=== PATIENT | female | born 1990 | race Caucasian/White ===

== ENCOUNTER 2025-02-10 18:22 | Emergency (ER) | payer OTHER, BC, SELFPAY ==
--- NOTE | ~2025-02-10 | XR_ITS ---
HISTORY: L hand laceration COMPARISON: None TECHNIQUE: 3 views of the left hand were performed. FINDINGS: No acute fracture is identified. The joint spaces are preserved. The carpal arcs are intact. Bone mineralization is age-appropriate. Moderate soft tissue swelling projecting over the DIP of the left second digit No radiopaque foreign body is identified. IMPRESSION: No acute fracture or dislocation within the left hand, as detailed above. Reviewed, dictated and finalized at location A.
--- OUTSIDE RECORDS SUMMARY | 2025-02-10 18:24 | XMS_ITS | Referral Summary ---
Author Organization [facility] Address [address] [place] [address] Care Team Providers Care Shell Mold Bonder Name Role Phone Pcp, No Primary Care Provider Unavailabl e Allergies No known active allergies Medications Medication Sig Dispensed Refills Start Date End Date Status HYDROCODONE-ACETAMINOPH EN ORAL Take 10-325 mg by mouth as needed. Active Active Problems Problem Noted Date Diagnosed Date Acute lumbar radiculopathy 12/05/2016 Social History Tobacco Use Types Packs/Day Years Used Date Smoking Tobacco: Every Day Alcohol Use Standard Drinks/Week Comments No 0 (1 standard drink = 0.6 oz pur e alcohol) Sex and Gender Information Value Date Recorded Sex Assigned at Not on file Gender Identity Not on file Sexual Orientation Not on file Last Filed Vital Signs Vital Sign Reading Time Taken Comments Blood Pressure 146/88 04/24/2017 12:30 PM EDT Pulse 74 04/24/2017 1:00 PM EDT Temperature 36.4 C (97.5 F) 04/24/2017 12:30 PM EDT Respiratory Rate 13 04/24/2017 1:00 PM EDT Oxygen Saturation 100% 04/24/2017 1:00 PM EDT Inhaled Oxygen Concentration - - Weight 90.7 kg (200 lb) 04/24/2017 12:57 PM EDT Height 160 cm (5' 3 ) 04/24/2017 12:57 PM EDT Body Mass Index 35.43 04/24/2017 12:57 PM EDT Plan of Treatment Not on file Care Teams Shell Mold Bonder Relationship Specialty Start Date End Date Pcp, No PCP - General 12/05/16
--- OUTSIDE RECORDS SUMMARY | 2025-02-10 18:24 | XMS_ITS | Encounter Summary ---
Author Organization [facility] Address [address] [place] [address] Care Team Providers Care Public Health Worker Name Role Phone Jennifer Emerson DO Primary Care Provider [phone] Encounter Details Date Type Department Care Team ([facility] st Contact Info) Description 11/15/2019 Telephone [facility] [address] [facility] [place] [address] Mary Yousif LPN Social History Tobacco Use Types Packs/Day Years Used Date Smoking Tobacco: Former Cigarettes 0.5 15 Smokeless Tobacco: Never Alcohol Use Standard Drinks/Week Comments Yes 0 (1 standard drink = 0.6 oz pur e alcohol) occ Comments No Sex and Gender Information Value Date Recorded Sex Assigned at Female 05/11/2019 6:45 PM EDT Legal Sex Female 1:03 PM EST Gender Identity Female 05/11/2019 6:45 PM EDT Sexual Orientation Straight 05/11/2019 6: 45 PM EDT documented as of this encounter Miscellaneous Notes * Telephone Encounter - Staci Braxton MA - 11/15/2019 6:34 PM EST Patient returned call. Below information was given. Patient verbalized understanding and call ended. * Telephone Encounter - Mary Yousif LPN - 11/15/2019 5:59 PM EST No answer VM left to RTC.Mary Yousif LPN 11/15/2019 5:59 PM * Telephone Encounter - Mary Yousif LPN - 11/15/2019 5:58 PM EST ----- Message from Carie Marin NP sent at 11/15/2019 5:00 PM EST ----- Gonorrhea, chlamydia, and yeast tests were negative. Positive for BV and trichomonas. Patient has already been treated for this with Flagyl. Please notify patient trichomonas is an STD. Pt should abstain from all sexual activity until she and her partner have completed all treatment. Pt should f/u w/ their PCP if further concerns. Please inform the patient. documented in this encounter Plan of Treatment Not on file documented as of this encounter Visit Diagnoses Not on filedocumented in this encounter Additional Health Concerns Infection Onset Date Last Indicated Resolved Time Coronavirus Disease (COVID-1 9) - Rule out 05/03/2021 05/03/2021 05/03/2021 12:03 PM EDT documented as of this encounter Care Teams Public Health Worker Relationship Specialty Start Date End Date Jennifer Emerson DO [address] [place] [address] PCP - General 05/11/19 documented as of this encounter
--- OUTSIDE RECORDS SUMMARY | 2025-02-10 18:24 | XMS_ITS | Encounter Summary ---
Author Organization [facility] Address [address] [place] [address] Care Team Providers Care Family Health Nurse Practitioner Name Role Phone Pcp, No Primary Care Provider Unavailabl e Encounter Details Date Type Department Care Team (Late st Contact Info) Description 11/19/2014 Conversion Encounter [facility] Conversion Department [address] [place] [address] Levar Gomes MD [address] [place] [address] Social History Tobacco Use Types Packs/Day Years Used Date Smoking Tobacco: Never Assessed Sex and Gender Information Value Date Recorded Sex Assigned at Not on file Gender Identity Not on file Sexual Orientation Not on file documented as of this encounter Progress Notes * Provider, Historical - 11/19/2014 12:00 AM EST [id number] Report: Radiology ([facility]) Radiology PATIENT NAME: [facility] NUMBER: [id number] DATE: 11/20/2014 CASE#: [id number] SIGNATURE:NATA PATEL RADIOLOGY REPORT:SPINE LUMBAR 2 OR 3 VIEWS post op spinal fusion 11/20/2014 10:54 AM Comparison: September 20, 2014. Pedicle screws and rods and intravertebral spacer have been placed at L4-L5. The disc space remains normal.. Overall alignment is normal. [facility] - [facility] Bl[facility] Changer Date - IMPRESSION:Intact L4-L5 discectomy and fusion. DICTATED BY : Dr. NATA PATEL Nov 20 2014 11:16AM ELECTRONICALLY SIGNED BY: Dr. NATA PATEL Nov 20 2014 11:13AM TRANSCRIBED BY: PSCB Nov 20 2014 11:12AM RADRES [id number] ^^^ documented in this encounter OR Notes * Op Note - Levar Gomes MD - 11/19/2014 12:00 AM EST PATIENT: LILI CUI [facility] NO: [id number] DATE OF : 1990 ACCOUNT NO: [id number] DATE OF PROCEDURE: 11/19/2014 DICTATING PHYSICIAN: SRINIVAS GAYTAN M.D., Resident STAFF PHYSICIAN: Levar Gomes M.D. HOSPITAL - OPERATIVE NOTE PROCEDURE: Open right lumbar 4-lumbar 5 transforaminal interbody fusion (L4-5 transforaminal lumbar interbody fusion (TLIF). PREOPERATIVE DIAGNOSIS: Lumbar radiculopathy, right-sided, related to disk herniation, facet arthropathy, lateral recess stenosis. POSTOPERATIVE DIAGNOSIS: Lumbar radiculopathy, right-sided, related to disk herniation, facet arthropathy, lateral recess stenosis. ANESTHESIA: General. INDICATION FOR PROCEDURE: Briefly, the patient is a 23-year-old female, who has previously undergone three prior microlumbar diskectomies at L4-5 for right-sided lumbar radiculopathy. She has suffered significant right-sided leg pain and weakness and underwent initial surgery with initial improvement followed by recurrence of her symptoms and imaging showed a recurrent disk. This cycle continued through three surgeries. These were all at an outside hospital. She was seen at the [facility] and given the latest imaging showing reherniation of the disc and significant stenosis at L4-5. Risks, benefits, and alternatives of a lumbar fusion were discussed with the patient. She elected to proceed. DESCRIPTION OF PROCEDURE: The patient was brought to the operating room. General anesthesia was induced. Time-out was performed. Preoperative antibiotics were administered. The patient was positioned prone on a Rhett table with pads. All pressure points were padded appropriately. We used her prior midline incision and marked that both cranially and caudally as we would need more space to allow for instrumentation and wider dissection for the TLIF. This area of her back was prepped and draped in the usual sterile fashion. Local anesthetic was injected in the skin incision and dissected down with Bovie electrocautery. We placed an O arm reference frame clamp on the spinous process of L2. Once the periosteal dissection had been completed, we were careful around the right side L4-5 area due to the prior surgeries. There was notable scarring. Once we were well exposed, we obtained an O-arm spin using the neuro navigation. We then placed pedicle screws at L4, L5, on the right and the left. For reference, we used Solara screws, 65 x 40 for two of the screws and 65 x 45 for the other two. The screws were stimulated. The left-sided screws did not show any stimulation up to 20. The right-sided screws did show stimulation in the high teens indicating they are likely more irritable preoperatively due to the compression chronically. Once we were satisfied with our hardware being in place, we then began our decompression. Because the patient's symptoms were extremely unilateral and the stenosis on imaging was very lateral, we were able to maintain the posterior tension band. We did not take down the spinous process. Instead, we performed a facetectomy on the right at L4-5. At this point, we were able to see the L4 root. We worked inferiorly to the L5 root. Radiographically, there is not much central compression, so we did not have to work significantly through the old scar. We were able to get down to the disk space, and protecting the root and thecal sac, I made an incision in the disk space. Using several tools for disk space preparation and endplate preparation, we performed our diskectomy and endplate preparation. We then used neuronavigation to size with a trial and then place our graft. Our graft was an 8 x 26 Capstone cage with Protonix plus as well as some of the facet bone. Graft was in place. We then went ahead and sized our rods and placed our set screws. We then obtained a final O-arm spin to confirm the screws were indeed in good position. All the hardware was in good position. Once we were satisfied with all of that, we went ahead and drilled down the facet a little bit on the contralateral side and decorticate some adjacent bone. We laid down a 10 mL master graft strip as well as what was left of the harvested autologous bone. We then placed our medium Hemovac drain. Hemostasis was obtained with bipolar electrocautery. Just prior to leaving down all our new bone fusion adjuncts, we did use Clorpactin spray and vancomycin powder per our usual spine protocol. We then began closing. The fascia was closed with inverted interrupted 0- Vicryl sutures. The more superficial soft tissue layers were brought together with inverted interrupted 0-Vicryl sutures. The dermal edges were brought together with inverted interrupted 0-Vicryl sutures as well. The skin edges were approximated with aj. The wound was dressed with bacitracin ointment, gauze, and Tegaderm. The drain was secured in place with 3-0 nylon suture. The patient tolerated the procedure well. There were no noted complications. LEVAR GOMES M.D. ANNI/ JOB#: [id number] END OF DOCUMENT / CHANGE LOG FOLLOWS Elec. Signed By Bentley Dixon #[id number] for Levar Gomes #[id number] on 11/29/2014 07:16 ET ^^^ documented in this encounter Plan of Treatment Not on file documented as of this encounter Visit Diagnoses Not on filedocumented in this encounter Care Teams Family Health Nurse Practitioner Relationship Specialty Start Date End Date Pcp, Estrella PCP - General 12/05/16 documented as of this encounter
--- OUTSIDE RECORDS SUMMARY | 2025-02-10 18:24 | XMS_ITS | Encounter Summary ---
Author Organization [facility] Address [address] [place] [address] Care Team Providers Care Grocery Store Manager Name Role Phone Jennifer Emerson DO Primary Care Provider [phone] Encounter Details Date Type Department Care Team (Latest Contact Info) Description 08/13/2016 IHIE Encounter IHIE Autosign, Doctor No Address on File Social History Tobacco Use Types Packs/Day Years Used Date Smoking Tobacco: Every Day Cigarettes 0.5 15 Smokeless Tobacco: Never Alcohol Use Standard Drinks/Week Comments No 0 (1 standard drink = 0.6 oz pur e alcohol) Comments No Sex and Gender Information Value Date Recorded Sex Assigned at Female 05/11/2019 6:45 PM EDT Legal Sex Female 1:03 PM EST Gender Identity Female 05/11/2019 6:45 PM EDT Sexual Orientation Straight 05/11/2019 6: 45 PM EDT documented as of this encounter Procedure Notes * Autojulian, Doctor - 08/13/2016 9:47 AM EDTAssociated Order(s): HIE RADIOLOGY REPORT This final report originated from an external system. Edits and Signatures are only valid in the legal medical record. IHIE: CT Lumbar Spine W/o IV Contrast ORDERED BY: DANNY MONACO ([facility]) [id number] Report: Radiology ([facility]) Radiology Consultation Report Exam: CT Lumbar Spine W/o IV Contrast Pt Name: Lili Cui : 1990 Sex: F Exam Date: 08/13/2016 Exam Time: 09:47:10 Pt Class: O Pt Location: Reason for Exam: m54.16 Ordered by: Danny Monaco EXAM: CT Lumbar Spine W/o IV Contrast DATE: 08/13/2016 9:47 AM COMPARISON: 03/23/2014 MRI; 06/02/2016 radiograph INDICATION: 25 years old; m54.16; ; low back pain, surgical history TECHNIQUE: Standard departmental CT images were obtained of the lumbar spine without intravenous contrast. Coronal and sagittal reformats are provided. COMMUNICATION: Findings were discussed with Dr. Greene at 11:13 am 08/13/2016. FINDINGS: Transitional anatomy is noted at the lumbosacral junction. There are 5 lumbar type vertebrae. 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 S1 is partially lumbarized on the left. There is a rudimentary articulation at the left lateral process of S1 and S2. A sclerotic fibro-osseous articulation is noted on the right at S1-2. Postsurgical changes of L5-S1 fusion are redemonstrated. There are paired pedicle screws in L5 and S1 bridged by vertical rods. Interbody fusion cage is noted within the disc space. There is no evidence of osseous fusion across the L5-S1 endplates. Hardware appears intact. No evidence of loosening. Fracture lucency is noted through the right sacral ala, extending from the superior sacroiliac articulation into the right upper outer quadrant of the S1 sacral foramen. There is no continuity with the right S1 pedicle screw. Sclerosis is noted at the right lateral fibro-osseous articulation of S1 and S2. This is unchanged from prior. Degenerative changes are noted at L2-3, with a large anterior calcified disc osteophyte. Small amount of disc bulge is noted posteriorly, minimally narrowing the spinal canal. Trace amount of gas is noted within the disc, which is significantly narrowed. There is no endplate sclerosis. Moderate facet arthropathy is noted at L5-S1 on the left. Sclerotic endplate changes are noted without osseous fusion across L5-S1. Rudimentary disc space is noted at S1-2. Laminectomy facetectomy has been performed on the right at L5-S1. Alignment is otherwise normal. Vertebral body heights are normal. There is no dick or retrolisthesis. Facets are normally aligned. Paraspinal musculature has a normal appearance. Scarring is noted in the subcutaneous soft tissue overlying the lower lumbar spine. IMPRESSION: 1. Acute nondisplaced right sacral ala fracture. This may be superimposed on a region of insufficiency or stress fracture evidenced by sclerosis. The sclerosis might also be explained by altered weight bearing due to transitional anatomy. 2. Transitional anatomy is present at the lumbosacral junction. S1 is partially lumbarized on the left. Rudimentary disc space is noted at S1-2. There is also an anatomic variant at the thoracolumbar junction. 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 3. Postsurgical changes of L5-S1 fusion and right laminectomy/facetectomy. Electronically Signed by: Suman Atkinson Dictated on: 08/13/2016 10:49 AM This examination and reported findings have been reviewed and confirmed by the undersigned. Attending Radiologist: Suman Atkinson MD Dictated By: Sudheer Ruiz MD I authorize my name to be Electronically affixed by using my unique signature access code. documented in this encounter Plan of Treatment Not on file documented as of this encounter Procedures Procedure Name Priority Date/Time Associated Diagnosis Comments [facility] RADIOLOGY REPORT 08/13/2016 9:47 AM EDT documented in this encounter Results * [facility] RADIOLOGY REPORT (08/13/2016 9:47 AM EDT) Anatomical Region Laterality Modality Other Narrative Procedure Note Doctor Dimitry - 08/13/2016 9:47 AM EDT This final report originated from an external system. Edits and Signatures are only valid in the legal medical record. IHIE: CT Lumbar Spine W/o IV Contrast ORDERED BY: DANNY MONACO ([facility]) [id number] Report: Radiology ([facility]) Radiology Consultation Report Exam: CT Lumbar Spine W/o IV Contrast Pt Name: Lili Cui : 1990 Sex: F Exam Date: 08/13/2016 Exam Time: 09:47:10 Pt Class: O Pt Location: Reason for Exam: m54.16 Ordered by: Danny Monaco EXAM: CT Lumbar Spine W/o IV Contrast DATE: 08/13/2016 9:47 AM COMPARISON: 03/23/2014 MRI; 06/02/2016 radiograph INDICATION: 25 years old; m54.16; ; low back pain, surgical history TECHNIQUE: Standard departmental CT images were obtained of the lumbar spine without intravenous contrast. Coronal and sagittal reformats are provided. COMMUNICATION: Findings were discussed with Dr. Greene at 11:13 am 08/13/2016. FINDINGS: Transitional anatomy is noted at the lumbosacral junction. There are 5 lumbar type vertebrae. 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 S1 is partially lumbarized on the left. There is a rudimentary articulation at the left lateral process of S1 and S2. A sclerotic fibro-osseous articulation is noted on the right at S1-2. Postsurgical changes of L5-S1 fusion are redemonstrated. There are paired pedicle screws in L5 and S1 bridged by vertical rods. Interbody fusion cage is noted within the disc space. There is no evidence of osseous fusion across the L5-S1 endplates. Hardware appears intact. No evidence of loosening. Fracture lucency is noted through the right sacral ala, extending from the superior sacroiliac articulation into the right upper outer quadrant of the S1 sacral foramen. There is no continuity with the right S1 pedicle screw. Sclerosis is noted at the right lateral fibro-osseous articulation of S1 and S2. This is unchanged from prior. Degenerative changes are noted at L2-3, with a large anterior calcified disc osteophyte. Small amount of disc bulge is noted posteriorly, minimally narrowing the spinal canal. Trace amount of gas is noted within the disc, which is significantly narrowed. There is no endplate sclerosis. Moderate facet arthropathy is noted at L5-S1 on the left. Sclerotic endplate changes are noted without osseous fusion across L5-S1. Rudimentary disc space is noted at S1-2. Laminectomy facetectomy has been performed on the right at L5-S1. Alignment is otherwise normal. Vertebral body heights are normal. There is no dick or retrolisthesis. Facets are normally aligned. Paraspinal musculature has a normal appearance. Scarring is noted in the subcutaneous soft tissue overlying the lower lumbar spine. IMPRESSION: 1. Acute nondisplaced right sacral ala fracture. This may be superimposed on a region of insufficiency or stress fracture evidenced by sclerosis. The sclerosis might also be explained by altered weight bearing due to transitional anatomy. 2. Transitional anatomy is present at the lumbosacral junction. S1 is partially lumbarized on the left. Rudimentary disc space is noted at S1-2. There is also an anatomic variant at the thoracolumbar junction. 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 3. Postsurgical changes of L5-S1 fusion and right laminectomy/facetectomy. Electronically Signed by: Suman Atkinson Dictated on: 08/13/2016 10:49 AM This examination and reported findings have been reviewed and confirmed bythe undersigned. Attending Radiologist: Suman Atkinson MD Dictated By: Sudheer Ruiz MD I authorize my name to be Electronically affixed by using my uniquesignature access code. Doctor Autosign [email or web address] Final Result documented in this encounter Visit Diagnoses Not on filedocumented in this encounter Additional Health Concerns Infection Onset Date Last Indicated Resolved Time Coronavirus Disease (COVID-1 9) - Rule out 05/03/2021 05/03/2021 05/03/2021 12:03 PM EDT documented as of this encounter Care Teams Grocery Store Manager Relationship Specialty Start Date End Date Jennifer Emerson DO [address] [address] PCP - General 05/11/19 documented as of this encounter
--- OUTSIDE RECORDS SUMMARY | 2025-02-10 18:24 | XMS_ITS | Encounter Summary ---
Author Organization [facility] Address [address] [place] [address] Care Team Providers Care Bicycle Inspector Name Role Phone Pcp, No Primary Care Provider Unavailabl e Encounter Details Date Type Department Care Team (Late st Contact Info) Description 06/14/2016 Conversion Encounter [facility] Conversion Department [address] [place] [address] Provider, [address] [id number] Social History Tobacco Use Types Packs/Day Years Used Date Smoking Tobacco: Never Assessed Sex and Gender Information Value Date Recorded Sex Assigned at Not on file Gender Identity Not on file Sexual Orientation Not on file documented as of this encounter Plan of Treatment Not on file documented as of this encounter Visit Diagnoses Not on filedocumented in this encounter Care Teams Bicycle Inspector Relationship Specialty Start Date End Date Pcp, No PCP - General 12/05/16 documented as of this encounter
--- OUTSIDE RECORDS SUMMARY | 2025-02-10 18:24 | XMS_ITS | Clinical Summary ---
Author Organization [facility] Address [address] [place] [address] Care Team Providers Care Care Asst Name Role Phone Pcp, No Primary Care [...] 04/24/2017 12:57 PM EDT Plan of Treatment Health Maintenance Due Date Last Done Comments Hepatitis C Screening 2006 DTaP,Tdap,and Td Vaccines (1 - Tdap) 12/27/2007 Hepatitis B Vaccines (1 of 3 - 19+ 3-dose series) 12/12 Cervical Cancer Screening 2009 HIV Screening 2013 Covid Vaccines ( - 2023-25 season) 2024 Influenza Vaccine (#1) 2024 Care Teams Care Asst Relationship Specialty Start Date End Date Pcp, No PCP - General 12/05/16
--- OUTSIDE RECORDS SUMMARY | 2025-02-10 18:25 | XMS_ITS | Encounter Summary ---
Author Organization Address [address] [place] [address] Care Team Providers Care Cadd Instructor Name Role Phone Pcp, No Primary Care Provider Unavailabl e Encounter Details Date Type Department Care Team (Late st Contact Info) Description 11/19/2014 Conversion Encounter Conversion Department [address] [place] [address] Provider, [address] [id number] Social History Tobacco Use Types Packs/Day Years Used Date Smoking Tobacco: Never Assessed Sex and Gender Information Value Date Recorded Sex Assigned at Not on file Gender Identity Not on file Sexual Orientation Not on file documented as of this encounter Plan of Treatment Not on file documented as of this encounter Visit Diagnoses Not on filedocumented in this encounter Care Teams Cadd Instructor Relationship Specialty Start Date End Date Pcp, No PCP - General 12/05/16 documented as of this encounter
--- OUTSIDE RECORDS SUMMARY | 2025-02-10 18:25 | XMS_ITS | Encounter Summary ---
Author Organization [facility] Address [address] [place] [address] Care Team Providers Care Tie Binder Name Role Phone Pcp, No Primary Care Provider Unavailabl e Encounter Details Date Type Department Care Team (Late st Contact Info) Description 09/20/2014 Conversion Encounter [facility] Conversion Department [address] [place] [address] Provider, [address] [address] Social History Tobacco Use Types Packs/Day Years Used Date Smoking Tobacco: Never Assessed Sex and Gender Information Value Date Recorded Sex Assigned at Not on file Gender Identity Not on file Sexual Orientation Not on file documented as of this encounter Progress Notes * Provider, Historical - 09/20/2014 12:00 AM EST [id number] Report: Radiology ([facility]) Radiology PAT[facility]: [facility] NUMBER: [id number] DATE: 09/20/2014 CASE#: [id number] RADIOLOGY REPORT:EXAM: Exam: SPINE LUMBAR W/ BENDING VIEWS - 09/20/2014 9:15 PM INDICATION: 23 years Female, hx discectomy with increasing pain. please do flexion and extension views per neurosurgery rec. COMPARISON: MRI spine, 09/20/2014. FINDINGS: Normal alignment of the lumbar spine. Multilevel loss of intervertebral disc space height, most notable atL1-L2, L4-L5, and L5-S1. Vertebral body heights are preserved. Approximately 10? range of motion with flexion and extension. Negative for fracture or subluxation. Transcribed by - [facility] Frame Carver Spindle Date - [id number] IMPRESSION:Negative for fracture. No subluxation with flexion or extension. DICTATED BY : Dr. CON SPENCER Sep 20 2014 9:15PM ELECTRONICALLY SIGNED BY: Dr. CARLA LEE Sep 21 2014 12:11AM TRANSCRIBED BY: PSCB Sep 20 2014 9:15PM DAYANA [id number] SIGNATURE:CARLA LEE ^^^ * Provider, Historical - 09/20/2014 12:00 AM EST [id number] Report: Radiology ([facility]) Radiology PATIENT NAME: [facility] NUMBER: [id number] DATE: 09/20/2014 CASE#: [id number] RADIOLOGY REPORT:Exam: MR lumbosacral spine without contrast Completion Time: 09/20/2014 5:48 PM Clinical History: 23-year-old female with incontinence of stool and urine, numbness around perineum. Comparison: None. Technique: Routine pulse sequences were obtained including sagittal and axial T1 and T2-weighted images. In addition, sagittal STIR images were obtained. Findings: There is transitional anatomy with partial sacralization of L5. There is normal alignment of the lumbar spine. The conus medullaris is clearly visualized and terminates at L1. No spinal cord signal abnormality. There is disc desiccation and height loss at L1-L2, L4-L5 and L5-S1. There are degenerative Modic type 2 endplate changes at L4-L5. There is a lipid poor hemangioma in T11. There is no abnormal contrast enhancement. Denervation edema in the right dorsal sacral spinal muscles. Otherwise the paraspinal muscles are normal. No aortic aneurysm. Cholelithiasis. Axial images were obtained from L1 through S1. L1-L2, L2-L3, L3-L4: There is no evidence of disc bulge. No narrowing of the spinal canal or stenosis of the neural foramina is seen. L4-L5: There are postsurgical changes present likely due to a prior partial discectomy. There is mild epidural fibrosis on the right. There is a small diffuse disc bulge that remains. No significant spinal canal stenosis. There is at least moderate right-sided neuroforaminal stenosis, mild left-sided neural foraminal stenosis. L5-S1: There is no evidence of disc bulge. No narrowing of the spinal canal or stenosis of the neural foramina is seen. Transcribed by - [facility] Frame Carver Spindle Date - [id number] IMPRESSION:1. Post surgical changes at L4-L5 with mild amount of epidural fibrosis which causes at least moderate right-sided neuroforaminal stenosis. No significant spinal canal stenosis. Mild left-sided neural foraminal stenosis. 2. Transitional anatomy with partial sacralization of L5. DICTATED BY : Dr. BART PALAFOX Sep 20 2014 5:47PM ELECTRONICALLY SIGNED BY: Dr. DEBBIE AGUSTIN Sep 20 2014 8:54PM TRANSCRIBED BY: PSCEmir Sep 20 2014 5:47PM RADRES [id number] SIGNATURE:DEBBIE AGUSTIN ^^^ * Provider, Historical - 09/20/2014 12:00 AM EST [id number] Report: Radiology ([facility]) Radiology PATIENT NAME: [facility] NUMBER: [id number] DATE: 09/20/2014 CASE#: [id number] RADIOLOGY REPORT:Exam: Thoracic spine MR without contrast Completion Time: 09/20/2014 Comparison: 1556 hrs. Clinical History: Incontinence of stool and urine, numbness around perineum Technique: Routine pulse sequences were obtained including sagittal T1, T2, STIR, and axial T2-weighted sequences. Findings: The thoracic spine is normal in position and alignment. There is a lipid poor hemangioma in T11. The bone marrow signal is otherwise unremarkable. There are mild, multilevel degenerative disc disease. There is a distal which involves the right foramen at T10-T11 causes moderate right-sided neuroforaminal stenosis. There is no evidence of abnormal disc signal. The thoracic spinal cord is clearly visualized throughout without evidence of intrinsic or extrinsic lesions. Transcribed by - [facility] Frame Carver Spindle Date - [id number] IMPRESSION:1. Disc bulge at T10-11 causes moderate right-sided neuroforaminal stenosis. Otherwise minimal degenerative disc disease. DICTATED BY : Dr. BART PALAFOX Sep 20 2014 6:59PM ELECTRONICALLY SIGNED BY: Dr. DEBBIE AGUSTIN Sep 20 2014 8:54PM TRANSCRIBED BY: PSCB Sep 20 2014 6:59PM RADRES [id number] SIGNATURE:DEBBIE AGUSTIN ^^^ documented in this encounter Plan of Treatment Not on file documented as of this encounter Visit Diagnoses Not on filedocumented in this encounter Care Teams Tie Binder Relationship Specialty Start Date End Date Pcp, No PCP - General 12/05/16 documented as of this encounter
--- OUTSIDE RECORDS SUMMARY | 2025-02-10 18:25 | XMS_ITS | Clinical Summary ---
Author Organization [employer] [facility] Address [address] [place] [address] Care Team Providers Care Ultrasound Tester Name Role Phone Jennifer Emerson DO Primary Care Provider [phone] Allergies Active Allergy Reactions Criticality Noted Date Comments Fentanyl Anxiety Low 01/09/2023 Hydrocodone Itching 08/24/2019 Wasp Venom Shortness Of Breath,Swelling High 017 Medications lidocaine (LIDODERM) 5 % Place 1 patch onto the skin daily. Remove & Discard patch within 12 hours or as directed by 15 patch 1 6 Active Additional Information Patient not taking.Reported on 01/09/2023 gabapentin (NEURONTIN) 600 MG tablet Take ONE tablet (600 mg total) by mouth Nightly. 30 tablet 2 6 Active Additional Information Patient not taking.Reported on 01/09/2023 HYDROcodone-acet aminophen (NORCO) 10-325 mg tabletIndication s:Closed nondisplaced zone I fracture of sacrum, initial encounter ([facility]) Take ONE tablet by mouth every 4 (four) hours as needed for Pain. 102 tablet 7 Active Additional Information Patient not taking.Reported on 01/09/2023 EPINEPHrine 0.3 mg/0.3 mL injectionIndicat ions:Anaphylacti c reaction, initial encounter Inject 0.3 mLs (0.3 mg total) into the muscle as needed for Allergies or Anaphylaxis. 2 each 2 7 Active Additional Information Patient not taking.Reported on 01/09/2023 meloxicam (MOBIC) 15 MG tablet Take ONE tablet (15 mg total) by mouth daily. TAKE WITH FOOD 30 tablet 7 Active Additional Information Patient not taking.Reported on 01/09/2023 acetaminophen-co deine (TYLENOL #3) 300-30 mg per tablet Take 1 tablet by mouth every 4 (four) hours as needed for Pain. Active naproxen sodium (ANAPROX) 220 MG tablet Take 220 mg by mouth 2 (two) times daily with meals. Active fluconazole (DIFLUCAN) 150 MG tabletIndication s:Vaginal discharge Take 1 now and repeat in 7 days. 2 tablet 0 Active Additional Information Patient not taking.Reported on 01/09/2023 albuterol (PROAIR HFA) 90 mcg/actuation inhalerIndicatio ns:Acute sinusitis, recurrence not specified, unspecified location Inhale ONE puff to TWO puffs into the lungs every 4 (four) hours as needed for Wheezing or Shortness of Breath. 18 g 2 Active Additional Information Patient not taking.Reported on 01/09/2023 benzonatate 200 MG capsuleIndicatio ns:Acute sinusitis, recurrence not specified, unspecified location Take ONE capsule (200 mg total) by mouth 3 (three) times daily as needed for Cough. 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 09/28/2016 12/19/2018 Immunizations Name Administration Dates Next Due Tdap 01/09/2016 Family History Medical History Relation Comments Arthritis Father Diabetes Father Hypertension Father Arthritis Mother Stroke Mother Relation Status Comments Father Alive Mother Alive Social History Tobacco Use Types Packs/Day Years [...] Orientation Straight 05/11/2019 6: 45 PM EDT Last Filed Vital Signs Vital Sign Reading Time Taken Comments Blood Pressure 124/70 01/09/2023 9:47 AM EDT Pulse 82 01/09/2023 9:47 AM EDT Temperature 36.2 C (97.1 F) 01/09/2023 9:47 AM EDT Respiratory Rate 16 01/09/2023 9:47 AM EDT Oxygen Saturation 98% 01/09/2023 9:47 AM EDT Inhaled Oxygen Concentration - - Weight 91.1 kg (200 lb 12.8 oz) 01/09/2023 9:47 AM EDT Height 160 cm (5' 3 ) 01/09/2023 9:47 AM EDT Body Mass Index 35.57 01/09/2023 9:47 AM EDT Plan of Treatment Health Maintenance Due Date Last Done Comments Annual Physical Exam 1988 Cervical Cancer Screening 1988 Hepatitis C Screening 1988 Pap and HPV (cotest) 1988 SDOH 1988 Hepatitis B Vaccines (Adult) (1 of 3 - 19+ 3-dose series) 12/27/2007 HPV 2009 Pap Smear 2009 Diabetes Screening 05/23/2019 05/23/2016 COVID-19 Vaccine (3 - 2023-2 5 season) 2024 09/28/2021, 08/31/2021 Annual Adult Depression Screen 10/14/2024 Influenza Vaccine (Season Ended) 2025 Tetanus Vaccine (every 10 years) 01/08/2026 01/09/2016 Tetanus/Pertussis Adult Vaccine (One-time Booster) Completed 01/09/2016 HPV Vaccines Aged Out No longer eligi ble based on patient's age to complete this topic Meningococcal Vaccine (MCV4) Aged Out No longer eligible based on patient's age to complete this topic Pneumococcal Vaccine: 19-49 Years (Increased Risk) Aged Out No longer eligibl e based on patient's age to complete this topic Procedures Procedure Name Priority Date/Time Associated Diagnosis Comments POCT HEMOGLOBIN A1C Routine 05/23/2016 3 :29 PM EDT Elevated blood sugar from Last 3 Months or Most Recently Relevant to Health Maintenance Results * POCT hemoglobin a1c (05/23/2016 3:29 PM EDT) Hemoglobin A1C 5.4 5.0 - 7.0 % 05/23/2016 3:[address] DO POINT OF CARE TEST ORDERA BLES Final Result from Last 3 Months or Most Recently Relevant to Health Maintenance Insurance [facility] Care Teams Ultrasound Tester Relationship Specialty Start Date End Date Jennifer Emerson DO [address] [place] [id number] PCP - General 05/11/19
--- OUTSIDE RECORDS SUMMARY | 2025-02-10 18:25 | XMS_ITS | Encounter Summary ---
Author Organization [facility] Address [address] [place] [address] Care Team Providers Care Player Development Manager Name Role Phone Pcp, No Primary Care Provider Unavailabl e Encounter Details Date Type Department Care Team (Late st Contact Info) Description 11/03/2014 Conversion Encounter [facility] NEUROSURGERY [address] [place] [address]. [address] [place] [address] Bentley Dixon MD [address] [place] [address] Social History Tobacco Use Types Packs/Day Years Used Date Smoking Tobacco: Never Assessed Sex and Gender Information Value Date Recorded Sex Assigned at Not on file Gender Identity Not on file Sexual Orientation Not on file documented as of this encounter Consult Notes * Bentley Dixon MD - 11/03/2014 12:00 AM EST PATIENT: [facility] NO: [id number] DATE OF : 1990 ACCOUNT NO: [id number] DATE OF VISIT: 11/03/2014 DICTATING PHYSICIAN: SIRNIVAS GAYTAN M.D., Resident STAFF PHYSICIAN: Bentley Dixon M.D. NEUROSURGERY CLINIC - INITIAL EVALUATION INTERVAL HISTORY: Briefly, the patient is a 23-year-old female, who has had a long recurring right lower extremity radiculopathy. She has had multiple surgeries at L4-5, all related to acute disk herniations. The first of these was in 07/2012, at which time there was concern for cauda equina. She subsequently re-herniated in 01/2013, and had a revision surgery; and again in 07/2013 undergoing a third microlumbar diskectomy at L4-5. She does well after each of these surgeries, however, then has a recurrence of symptoms. She presents today to see are there any evidence further surgical options, as her symptoms have now recurred again. She has weakness in her right leg, as well as shooting pains down her right, as well as sometimes her left leg. PAST MEDICAL HISTORY: No significant past medical history. PAST SURGICAL HISTORY: The three above-listed surgeries. MEDICATIONS: Percocet p.r.n. ALLERGIES: She does not list any allergies. SOCIAL HISTORY: Tobacco: Half-pack a day. Alcohol: None. Drugs: None. PHYSICAL EXAMINATION: She has 5/5 strength in her left lower extremity. She has 5/5 strength in the right lower extremity, with the exception of extensor hallucis longus (EHL) and dorsiflexion, which she has 4-. She has diminished sensation of the dorsum of her right foot. She is unable to stand on her heels. Due to the pain, she uses a cane for ambulation at times. IMAGING: She has multilevel disease that is very minor, with the exception of L4-5, which shows postsurgical changes, as well as right greater than left stenosis and neural foraminal narrowing. ASSESSMENT AND PLAN: A 23-year-old female with right L5 radiculopathy, status post L4-5 microlumbar diskectomy x3 within the last 1-1/2 years. We discussed several options. She is very interested in undergoing a fusion surgery. We did discuss that her prior surgeons probably elected not to fuse her due to her younger age. We talked about potential long-term complications, including adjacent segment disease, pseudoarthrosis. We discussed that she needs to stop her smoking. I think given that she is now symptomatic a fourth, distinct, separate time after having three prior microlumbar diskectomies (MLDs), I think it is reasonable to consider right L4-5 transforaminal lumbar interbody fusion (TLIF). We will go ahead and schedule her. She notes that she is able to stay off work until 01/26, at which time she has to return. We will try to schedule him as soon as we can. At this time, I think we will most likely schedule her for early December. Her work is very light duty, so I think it is a fairly reasonable thought that she will be able to undergo the surgery and returned to light duty work by 01/26. If we have any openings, we will move her up for sooner. Patient seen and examined and resident supervised. AGree with plan. BENTLEY DIXON M.D. SAS/ldh JOB#: [id number] END OF DOCUMENT / CHANGE LOG FOLLOWS Last Edited By Elec. Signed By Bentley Dixon #[id number] Bentley Dixon #[id number] on 11/07/2014 09:01 ET on 11/07/2014 09:01 ET Revision Number - 2 ^^^ documented in this encounter Plan of Treatment Not on file documented as of this encounter Visit Diagnoses Not on filedocumented in this encounter Care Teams Player Development Manager Relationship Specialty Start Date End Date Pcp, Estrella PCP - General 12/05/16 documented as of this encounter
--- OUTSIDE RECORDS SUMMARY | 2025-02-10 18:25 | XMS_ITS | Encounter Summary ---
Author Organization [employer] [facility] Address [address] [place] [address] Care Team Providers Care Real Estate Specialist Name Role Phone Jennifer Emerson DO Primary Care Provider [phone] Encounter Details Date Type Department Care Team (Late st Contact Info) Description 12/15/2015 Telephone Osteopathic Family Medicine [address] [address], [address] [place], [place] [id number] Social History Tobacco Use Types Packs/Day Years Used Date Smoking Tobacco: Every Day Cigarettes 0.5 15 Smokeless Tobacco: Never Alcohol Use Standard Drinks/Week Comments No 0 (1 standard drink = 0.6 oz pur e alcohol) Comments Yes Sex and Gender Information Value Date Recorded Sex Assigned at Female 05/11/2019 6:45 PM EDT Legal Sex Female 1:03 PM EST Gender Identity Female 05/11/2019 6:45 PM EDT Sexual Orientation Straight 05/11/2019 6: 45 PM EDT documented as of this encounter Miscellaneous Notes * Telephone Encounter - Clara Marie LPN - 12/15/2015 9:32 AM EST Prior authorization for the Lidocaine 5% patch was approved starting 11/15/15 thru 10/13/99. ~Clara Tellez documented in this encounter Plan of Treatment Not on file documented as of this encounter Visit Diagnoses Not on filedocumented in this encounter Additional Health Concerns Infection Onset Date Last Indicated Resolved Time Coronavirus Disease (COVID-1 9) - Rule out 05/03/2021 05/03/2021 05/03/2021 12:03 PM EDT documented as of this encounter Care Teams Real Estate Specialist Relationship Specialty Start Date End Date Jennifer Emerson DO [address] [address] PCP - General 05/11/19 documented as of this encounter
--- OUTSIDE RECORDS SUMMARY | 2025-02-10 18:25 | XMS_ITS | Encounter Summary ---
Author Organization [employer] [facility] Address [address] [place] [address] Care Team Providers Care Weaving Supervisor Name Role Phone Jennifer Emerson DO Primary Care Provider [phone] Encounter Details Date Type Department Care Team (Late st Contact Info) Description 05/31/2016 Orders Only [facility] [address] [facility] [address] [place] [address] David Park MD [facility] [place] [address] Back injury (Primary Dx) Social History Tobacco Use Types Packs/Day Years [...] PM EDT documented as of this encounter Plan of Treatment Not on file documented as of this encounter Procedures Procedure Name Priority Date/Time Associated Diagnosis Comments XR SPINE THORACIC 3 VIEW STAT 05/31/2016 1:51 PM EDT Back injury documented in this encounter Results * X-ray spine thoracic 3+ view (05/31/2016 1:51 PM EDT) Anatomical Region Laterality Modality T-spine, T-spine, L-spine, Chest Computed Radiography 05/31/2016 2:00 PM EDT Narrative 05/31/2016 2:02 PM EDT EXAM: XR SPINE THORACIC 3+ VIEW DATE: 05/31/2016 1:51 PM CLINICAL HISTORY: 25 years of age; Unspecified injury of lower back, initial encounter., upper back pain post fall today. COMPARISON: Thoracic spine series 02/10/2015 FINDINGS: The alignment of the spine is within normal limits. The vertebral body heights are normal. There is mild disc space narrowing noted at T7-T8. No fracture or destructive abnormalities are found. Anterior bony spurring is noted at L2; this is unchanged. If the findings are discordant with the clinical or neurological exam, consider cross-sectional imaging for further evaluation. IMPRESSION: 1. No acute thoracic spine fracture. Thoracic spine findings are unchanged compared to the prior exam 02/10/2015. Interpreted by: Harish Crespo Jr, MD, FACR WSN:[id number] Procedure Note Harish Crespo Jr., MD - 05/31/2016 EXAM: XR SPINE THORACIC 3+ VIEW DATE: 05/31/2016 1:51 PM CLINICAL HISTORY: 25 years of age; Unspecified injury of lower back,initial encounter., upper back pain post fall today. COMPARISON: Thoracic spine series 02/10/2015 FINDINGS: The alignment of the spine is within normal limits. The vertebral bodyheights are normal. There is mild disc space narrowing noted at T7-T8.No fracture or destructive abnormalities are found. Anterior bonyspurring is noted at L2; this is unchanged. If the findings arediscordant with the clinical or neurological exam, considercross-sectional imaging for further evaluation. IMPRESSION: 1. No acute thoracic spine fracture. Thoracic spine findings areunchanged compared to the prior exam 02/10/2015. Interpreted by: Harish Crespo Jr, MD, FACR WSN:[id number] David Park MD IMG DIAGNOSTIC IMAGING ORDE SELENA Final Result documented in this encounter Visit Diagnoses Diagnosis Back injury- Primary Other injury of other sites of trunk documented in this encounter Additional Health Concerns Infection Onset Date Last Indicated Resolved Time Coronavirus Disease (COVID-1 9) - Rule out 05/03/2021 05/03/2021 05/03/2021 12:03 PM EDT documented as of this encounter Care Teams Weaving Supervisor Relationship Specialty Start Date End Date Jennifer Emerson DO [address] [place] [address] PCP - General 05/11/19 documented as of this encounter
--- OUTSIDE RECORDS SUMMARY | 2025-02-10 18:25 | XMS_ITS | Encounter Summary ---
Author Organization [facility] Address [address] [place] [address] Care Team Providers Care Felt Strip Finisher Name Role Phone Pcp, No Primary Care Provider Unavailabl e Encounter Details Date Type Department Care Team (Late st Contact Info) Description 12/29/2014 Conversion Encounter [facility] NEUROSURGERY [address] [place] [address]. [address] [place] [address] Bentley Dixon MD [address] [place] [address] Social History Tobacco Use Types Packs/Day Years Used Date Smoking Tobacco: Never Assessed Sex and Gender Information Value Date Recorded Sex Assigned at Not on file Gender Identity Not on file Sexual Orientation Not on file documented as of this encounter Progress Notes * Bentley Dixon MD - 12/29/2014 12:00 AM EDT PATIENT: [facility] NO: [id number] DATE OF : 1990 ACCOUNT NO: [id number] DATE OF VISIT: 12/29/2014 DICTATING PHYSICIAN: SRINIVAS GAYTAN M.D., Resident STAFF PHYSICIAN: Bentley Dixon M.D. NEUROSURGERY CLINIC - RE-EVALUATION REASON FOR VISIT: Briefly, the patient is a 24-year-old female who underwent a transforaminal lumbar interbody fusion (TLIF) for recurrent disk herniation. HISTORY OF PRESENT ILLNESS: Overall, she is doing quite well. She has 0/10 pain. She actually did extremely well immediately following surgery. She went home, I believe postoperative day one from a fusion which was fairly remarkable. She has had minimal pain medicine requirements. Her x-rays today look great. PHYSICAL EXAMINATION: She has 5/5 strength in the bilateral lower extremities. Sensation is intact. Her incision is well healed. We will plan to see her back in three months with a CAT scan. We also went ahead and gave her a work release. I think she can gradually start doing more at work but still stay somewhat limited to less than 20 pounds. She is welcome to call us with any questions or concerns in the interim. Otherwise, we will plan to see her back in 3 months. I think she is doing great. Patient seen and examined and resident supervised. Agree with plan. BENTLEY DIXON M.D. RAJEEV/ JOB#: [id number] END OF DOCUMENT / CHANGE LOG FOLLOWS Last Edited By Elec. Signed By Bentley Dixon #[id number] Bentley Dixon #[id number] on 12/30/2014 07:54 ET on 12/30/2014 07:54 ET Revision Number - 2 ^^^ * Provider, Historical - 12/03/2014 12:00 AM EST [id number]^AMANDA^NATA^[facility] EXAMINATION: Radiographs of the lumbar spine (2 views) performed on 12/29/2014 at 1201 hours. HISTORY: The patient is a 24-year-old woman. ADDITIONAL INFORMATION: None. COMPARISON: Radiographs of the lumbar spine dated 11/20/2014. PROCEDURE: Anteroposterior and lateral projections. FINDINGS: The surgical aj have been removed. The posterior fusion hardware including bilateral pedicle screws at the L4-L5 level and rods are intact and without periprosthetic lucency. The radiopaque disc spacer maintains a normal disc space height. Alignment is unchanged. There is no fracture. Transcribed by - [facility] Records Supervisor Date - [id number] Intact L4-L5 discectomy and posterior fusion hardware. DICTATED BY : Dr. MIGUEL Cazares 18 2015 12:01PM ELECTRONICALLY SIGNED BY: Dr. NATA PATEL Dec 29 2014 12:15PM TRANSCRIBED BY: [facility] Dec 29 2014 12:01PM RADRES [id number] ^^^ * Provider, Historical - 12/03/2014 12:00 AM EST [id number]^LEONOR^MIGUEL^Kristina^^^ EXAMINATION: Radiographs of the lumbar spine (2 views) performed on 12/29/2014 at 1201 hours. HISTORY: The patient is a 24-year-old woman. ADDITIONAL INFORMATION: None. COMPARISON: Radiographs of the lumbar spine dated 11/20/2014. PROCEDURE: Anteroposterior and lateral projections. FINDINGS: The surgical aj have been removed. The posterior fusion hardware including bilateral pedicle screws at the L4-L5 level and rods are intact and without periprosthetic lucency. The radiopaque disc spacer maintains a normal disc space height. Alignment is unchanged. There is no fracture. Transcribed by - [facility] Records Supervisor Date - [id number] Intact L4-L5 discectomy and posterior fusion hardware. DICTATED BY : Dr. MIGUEL GALVEZ Dec 29 2014 12:05PM ELECTRONICALLY SIGNED BY: [facility]: [facility] Dec 29 2014 12:05PM RADRES [id number] ^^^ documented in this encounter Plan of Treatment Not on file documented as of this encounter Visit Diagnoses Not on filedocumented in this encounter Care Teams Felt Strip Finisher Relationship Specialty Start Date End Date Pcp, Estrella PCP - General 12/05/16 documented as of this encounter
[2025-02-10 18:27] VITALS: BP 133/78; PULSE 81; RESP 20; TEMP 36.7; O2SAT 99
--- NOTE | 2025-02-10 18:33 | ED.WOUNDLAC ---
HPI - Wound/Laceration General Chief Complaint: Wound/Laceration <Stefany Reilly APRN - Last Filed: 02/10/25 18:39> Stated Complaint: finger laceration <Stefany Reilly APRN - Last Filed: 02/10/25 18:39> Time Seen by Provider: 02/10/25 18:30 <Stefany Reilly APRN - Last Filed: 02/10/25 18:39> Focused HPI: Patient is a 34-year-old female presents to the ER following a laceration to her left 2nd digit. She reports she was using a wooden box maker and sliced into her finger. Patient reports the area bled quite heavily and continues to bleed. She denies any relevant medical history. Patient is unsure when she last had her tetanus shot and would like to receive that today. She reports the pain is under control. Patient endorses full range of motion to her PIP and DIP joints. GENERAL: Well-appearing, well-nourished, and in no acute distress. HEAD: Normocephalic, atraumatic. CHEST: Clear to auscultation. ?No respiratory distress. HEART: Regular rate and rhythm.? NEURO: ?Alert and oriented x3. Patient screened in triage and initial orders placed.? ?Additional care and disposition to be based upon?diagnostic testing and treatment. <Stefany Reilly APRN - Last Filed: 02/10/25 18:39> History of Present Illness HPI narrative: Agree with the HPI above <Gregorio Woody MD - Last Filed: 02/11/25 00:34> Related Data Allergies/Adverse Reactions: Allergies Allergy/AdvReac Type Severity Reaction Status Date / Time fentanyl Allergy Anxiety Verified 02/10/25 18:30 hydrocodone Allergy Hives Verified 02/10/25 18:30 <Stefany Reilly APRN - Last Filed: 02/10/25 18:39> Review of Systems Review of Systems: As reviewed above in HPI <Gregorio Woody MD - Last Filed: 02/11/25 00:34> PMFSH Past Medical History Medical History: Medical History Encounter for adjustment and management of other implanted devices Endometriosis <Stefany Reilly, QA DEVELOPER - Last Filed: 02/10/25 18:39> Surgical History Surgical History: Surgical History History of hysterectomy <Stefany Reilly, QA DEVELOPER - Last Filed: 02/10/25 18:39> Social History Social History: Social History Smoking status: Current every day smoker Tobacco type: e-cigarettes/vaping Alcohol intake: former Substance use: current Substance use type: marijuana Do You Feel Safe in your Home?: Yes Lack of Transportation: No Lack of Food: Never True Current Housing: I Have Housing Concerned About Future Housing: No Difficulty Paying Gas/Electric Bills: No Difficulty Paying for Meds: No Currently Unemployed: No Education: High School Diploma/GED Difficulty w/ Childcare or Family Care: No Occupation/Education: occupation Gender identity (if verbalized by the patient): Female Sexual Orientation (if Verbalized by the Patient): Straight or Heterosexual <Stefany Reilly, QA DEVELOPER - Last Filed: 02/10/25 18:39> Exam Narrative: GENERAL: [Well-appearing, well-nourished, and in no acute distress.] HEAD: [Normocephalic, atraumatic.] EYES: [PERRLA and EOMI.] ENT: Nares clear, no rhinorrhea or epistaxis. Mucous membranes moist. NECK: Supple. CHEST: [Clear to auscultation. No respiratory distress.] HEART: [Regular rate and rhythm]. No murmur heard. [Normal peripheral pulses.] ABDOMEN: [Soft, nondistended], [nontender], [No rigidity or guarding] EXTREMITIES: Normal range of motion. [No edema.] Full range of motion at the MCP PIP and D IP joint. The left index finger at the D IP joint has a 1.5 cm linear laceration without any exposed tendon or musculature. No active bleeding. SKIN: Warm, dry, no rash. NEURO: [No focal deficits]. Alert and oriented [x3.] PSYCH: [Normal mood and affect.] <Gregorio Woody MD - Last Filed: 02/11/25 00:34> Course Vital Signs Vital signs: Vital Signs Temperature 36.7 C 02/10/25 18:27 Pulse Rate 81 02/10/25 18:27 Respiratory Rate 20 02/10/25 18:27 Blood Pressure 133/78 02/10/25 18:27 Pulse Oximetry 99 02/10/25 18:27 Oxygen Delivery Room Air 02/10/25 18:27 Temperature 36.7 C 02/10/25 18:27 Pulse Rate 81 02/10/25 18:27 Respiratory Rate 20 02/10/25 18:27 Blood Pressure 133/78 02/10/25 18:27 Pulse Oximetry 99 02/10/25 18:27 Oxygen Delivery Room Air 02/10/25 18:27 <Stefany Reilly APRN - Last Filed: 02/10/25 18:39> Vital Signs Temperature 36.7 C 02/10/25 18:27 Pulse Rate 81 02/10/25 18:27 Respiratory Rate 20 02/10/25 18:27 Blood Pressure 133/78 02/10/25 18:27 Pulse Oximetry 99 02/10/25 18:27 Oxygen Delivery Room Air 02/10/25 18:27 Temperature 36.7 C 02/10/25 18:27 Pulse Rate 81 02/10/25 18:27 Respiratory Rate 20 02/10/25 18:27 Blood Pressure 133/78 02/10/25 18:27 Pulse Oximetry 99 02/10/25 18:27 Oxygen Delivery Room Air 02/10/25 18:27 <Gregorio Woody MD - Last Filed: 02/11/25 00:34> Procedures Laceration Laceration 1: Date: 02/10/25 <Gregorio Woody MD - Last Filed: 02/11/25 00:34> Time: 23:50 <Gregorio Wodoy MD - Last Filed: 02/11/25 00:34> Site: hand <Gregorio Woody MD - Last Filed: 02/11/25 00:34> Side (If applicable): left <Gregorio Woody MD - Last Filed: 02/11/25 00:34> Size (cm): 1.5 <Gregorio Woody MD - Last Filed: 02/11/25 00:34> Description: linear and clean <Gregorio Woody MD - Last Filed: 02/11/25 00:34> Depth: simple, single layer <Gregorio Woody MD - Last Filed: 02/11/25 00:34> Local Anesthetic: lidocaine 2% (Digital block) <Gregorio Woody MD - Last Filed: 02/11/25 00:34> Amount of anesthesia used (mL): 5 <Gregorio Woody MD - Last Filed: 02/11/25 00:34> Pre-repair: wound explored, irrigated extensively and deep structures intact <Gregorio Woody MD - Last Filed: 02/11/25 00:34> ====== Skin Level ======: Skin layer closed with: nylon <Gregorio Woody MD - Last Filed: 02/11/25 00:34> Size (cm): 5-0 <Gregorio Woody MD - Last Filed: 02/11/25 00:34> Number of sutures: 5 <MD Evy Corona Last Filed: 02/11/25 00:34> Technique: simple, interrupted <Gregorio Woody MD - Last Filed: 02/11/25 00:34> ====== Subcutaneous Layer ======: ====== Muscle Layer ======: ====== Tendon Layer ======: Dressing: Gauze bandage applied over top. <Gregorio Woody MD - Last Filed: 02/11/25 00:34> Nerve Block Nerve Block 1: Nerve block date: 02/10/25 <MD Evy Corona Last Filed: 02/11/25 00:34> Nerve block time: 23:45 <Gregorio Woody MD - Last Filed: 02/11/25 00:34> Time out performed: Yes <MD Evy Corona Last Filed: 02/11/25 00:34> Local Anesthetic: lidocaine 2% <MD Evy Corona Last Filed: 02/11/25 00:34> Amount of anesthesia used (mL): 5 <Gregorio Woody MD - Last Filed: 02/11/25 00:34> Side: left <Gregorio Woody MD - Last Filed: 02/11/25 00:34> Nerve Blocks: digital <Gregorio Woody MD - Last Filed: 02/11/25 00:34> Procedure Successful: Yes <MD Evy Corona Last Filed: 02/11/25 00:34> Patient Tolerated Procedure: well and no complications <Gregorio Woody MD - Last Filed: 02/11/25 00:34> Complications: none <MD Evy Corona Last Filed: 02/11/25 00:34> MDM - Wound/Laceration MDM Narrative Medical decision making narrative: 34-year-old female presenting to the ER after slicing her finger on a wooden box maker. She has a 1.5 cm linear laceration over the D IP joint of the left index finger. No active bleeding. No exposed tendon or musculature. Full range of motion of all the joints. No signs of infection. Normal vital signs. X-rays obtained and negative for any foreign bodies or osseous process. Her tetanus was updated here in the ED. Digital block conducted and laceration repaired with 5 sutures placed. Patient was given management instructions and return precautions as well as told to follow-up in 10-14 days for suture removal. Patient safely discharged home at this time. <Gregorio Woody MD - Last Filed: 02/11/25 00:34> Medical Records Attestation: I reviewed the patient's medical records. <MD Evy Corona Last Filed: 02/11/25 00:34> Imaging Data Attestation: I personally reviewed and interpreted this imaging study as follows: <Gregorio Woody MD - Last Filed: 02/11/25 00:34> My impression: Impressions Hand X-Ray 02/10/25 18:52 IMPRESSION: No acute fracture or dislocation within the left hand, as detailed above. <Gregorio Woody MD - Last Filed: 02/11/25 00:34> Discharge Plan Discharge Clinical Impression: Finger laceration <Stefany Reilly APRN - Last Filed: 02/10/25 18:39> Patient Disposition: Home <Stefany Reilly APRN - Last Filed: 02/10/25 18:39> Condition: Stable <Stefany Reilly APRN - Last Filed: 02/10/25 18:39> Instructions: Antibiotic Form, Care For Your Stitches (ED), Laceration (ED) <Stefany Reilly APRN - Last Filed: 02/10/25 18:39> Additional Instructions: Follow-up 10-14 days for wound check and suture removal. Take Tylenol for aches and pains and apply ice for any swelling or pain. <Stefany Reilly APRN - Last Filed: 02/10/25 18:39> Patient Language: Martiniquais <Stefany Reilly APRN - Last Filed: 02/10/25 18:39> Prescriptions: No Action norethindrone (contraceptive) 0.35 mg tablet 0.35 mg PO DAILY Qty: 84 3RF clobetasol 0.05 % ointment 1 applic topical QHS Qty: 30 0RF Rx Instructions: Apply vaginally QHS <Stefany Reilly APRN - Last Filed: 02/10/25 18:39> Follow-up/Referrals: PHYSICIAN,CNC CUTTING OPERATOR [Primary Care Provider] - <Stefany Reilly APRN - Last Filed: 02/10/25 18:39> Time of Disposition: 23:34 <GENO Hawk Last Filed: 02/10/25 18:39> 23:34 <Gregorio Woody MD - Last Filed: 02/11/25 00:34>
[2025-02-10] MEDS: TETANUS,DIPHTHERIA,AC PERTUSSIS ADULT (0.5 ML) BOOSTRIX IM (22:20)
--- OUTSIDE RECORDS SUMMARY | 2025-02-10 22:35 | XMS_ITS | Clinical Summary ---
Author Organization [employer] [facility] Address [address] [place] [address] Care Team Providers Care Legal Consultant Name Role Phone Jennifer Emerson DO Primary Care Provider [phone] Allergies Active Allergy Reactions Criticality Noted Date [...] zone I fracture of sacrum, initial encounter ([facility]) Take ONE tablet by mouth every 4 [...] 7.0 % 05/23/2016 3:29 PM EDT Sebastian Strete DO POINT OF CARE TEST ORDERA BLES Final Result from Last 3 Months or Most Recently Relevant to Health Maintenance Insurance [facility] Care Teams Legal Consultant Relationship Specialty Start Date End Date Jennifer Emerson DO [address] [place] [address] PCP - General 05/11/19
--- OUTSIDE RECORDS SUMMARY | 2025-02-10 22:35 | XMS_ITS | Encounter Summary ---
Author Organization [facility] Address [address] [place] [address] Care Team Providers Care Manager Actuarial Name Role Phone Pcp, No Primary Care Provider Unavailabl e Encounter Details Date Type Department Care Team (Late st Contact Info) Description 06/14/2016 Conversion Encounter [facility] Conversion Department [address] [place] [address] Provider, [address] [id number] Social History Tobacco Use Types Packs/Day Years Used Date Smoking Tobacco: Never Assessed Sex and Gender Information Value Date Recorded Sex Assigned at Not on file Gender Identity Not on file Sexual Orientation Not on file documented as of this encounter Plan of Treatment Not on file documented as of this encounter Visit Diagnoses Not on filedocumented in this encounter Care Teams Manager Actuarial Relationship Specialty Start Date End Date Pcp, No PCP - General 12/05/16 documented as of this encounter
--- OUTSIDE RECORDS SUMMARY | 2025-02-10 22:35 | XMS_ITS | Encounter Summary ---
Author Organization [employer] work Address [address] [place] [address] Care Team Providers Care Drop Board Man Name Role Phone Jennifer Emerson DO Primary Care Provider [phone] Encounter Details Date Type Department Care Team (Late st Contact Info) Description 05/31/2016 Orders Only [employer] [facility] [address] [facility] [address] [place] [address] David Park MD [facility] [place] [address] Back injury (Primary Dx) [...] documented as of this encounter Care Teams Drop Board Man Relationship Specialty Start Date End Date Jennifer Emerson DO [address] [place] [address] PCP - General 05/11/19 documented as of this encounter
--- OUTSIDE RECORDS SUMMARY | 2025-02-10 22:35 | XMS_ITS | Encounter Summary ---
Author Organization [facility] Address [address] [place] [address] Care Team Providers Care Rough Rice Tender Name Role Phone Pcp, No Primary Care Provider Unavailabl e Encounter Details Date Type Department Care Team (Late st Contact Info) Description 11/03/2014 Conversion Encounter [facility] NEUR[facility]URGERY [address] [place] [address]. 3rd [place] [address] Bentley Dixon MD [address] [place] [address] Social History Tobacco Use Types Packs/Day Years Used Date Smoking Tobacco: Never Assessed Sex and Gender Information Value Date Recorded Sex Assigned at Not on file Gender Identity Not on file Sexual Orientation Not on file documented as of this encounter Consult Notes * Bentley Dixon MD - 11/03/2014 12:00 AM EST PATIENT: [facility] NO: [id number] DATE OF : 1990 ACCOUNT NO: [id number] DATE OF VISIT: 11/03/2014 DICTATING PHYSICIAN: SRINIVAS GAYTAN M.D., Resident STAFF [...] with plan. BENTLEY DIXON M.D. SAS/ldh JOB#: [id number] END OF DOCUMENT / CHANGE LOG FOLLOWS Last Edited By Elec. Signed By Bentley Dixon #[id number] Bentley Dixon #[id number] on 11/07/2014 09:01 ET on 11/07/2014 09:01 ET Revision Number - 2 ^^^ documented in this encounter Plan of Treatment Not on file documented as of this encounter Visit Diagnoses Not on filedocumented in this encounter Care Teams Rough Rice Tender Relationship Specialty Start Date End Date Pcp, Estrella PCP - General 12/05/16 documented as of this encounter
--- OUTSIDE RECORDS SUMMARY | 2025-02-10 22:35 | XMS_ITS | Encounter Summary ---
Author Organization [employer] work Address [address] [place] [address] Care Team Providers Care Car Pusher Name Role Phone Jennifer Emerson DO Primary Care Provider [phone] Encounter Details Date Type Department Care Team ([facility] st Contact Info) Description 11/15/2019 Telephone [employer] [address] [facility] [place] [address] Mary Yousif LPN Social History Tobacco [...] documented as of this encounter Care Teams Car Pusher Relationship Specialty Start Date End Date Jennifer Emerson DO [address] [place] [address] PCP - General 05/11/19 documented as of this encounter
--- OUTSIDE RECORDS SUMMARY | 2025-02-10 22:35 | XMS_ITS | Encounter Summary ---
Author Organization [facility] Address [address] [place] [address] Care Team Providers Care Hide Examiner Name Role Phone Pcp, No Primary Care Provider Unavailabl e Encounter Details Date Type Department Care Team (Late st Contact Info) Description 12/29/2014 Conversion Encounter [facility] NEUR[facility]URGERY [address] [place] [address]. 3rd [place] [address] Bentley Dixon MD [address] [place] [address] Social History Tobacco Use Types Packs/Day Years Used Date Smoking Tobacco: Never Assessed Sex and Gender Information Value Date Recorded Sex Assigned at Not on file Gender Identity Not on file Sexual Orientation Not on file documented as of this encounter Progress Notes * Bentley Dixon MD - 12/29/2014 12:00 AM EDT PATIENT: [facility] NO: [id number] DATE OF : 1990 ACCOUNT NO: [id number] DATE OF VISIT: 12/29/2014 DICTATING PHYSICIAN: SRINIVAS [...] with plan. BENTLEY DIXON M.D. RAJEEV/ JOB#: [id number] END OF DOCUMENT / CHANGE LOG FOLLOWS Last Edited By Elec. Signed By Bentley Dixon #[id number] Bentley Dixon #[id number] on 12/30/2014 07:54 ET on 12/30/2014 07:54 ET Revision Number - 2 ^^^ * Provider, Historical - 12/03/2014 12:00 AM EST [id number]^AMANDA^NATA^[facility] EXAMINATION: Radiographs of the lumbar spine (2 [...] There is no fracture. Transcribed by - [facility] Construction Equipment Technician Date - [id number] Intact L4-L5 discectomy and posterior fusion hardware. DICTATED BY : Dr. MIGUEL Cazares 18 2015 12:01PM ELECTRONICALLY SIGNED BY: Dr. NATA PATEL Dec 29 2014 12:15PM TRANSCRIBED BY: [facility] Dec 29 2014 12:01PM RADRES [id number] ^^^ * Provider, Historical - 12/03/2014 12:00 AM EST [id number]^LEONOR^MIGUEL^Kristina^^^ EXAMINATION: Radiographs of the lumbar spine (2 [...] There is no fracture. Transcribed by - [facility] Construction Equipment Technician Date - [id number] Intact L4-L5 discectomy and posterior fusion hardware. DICTATED BY : Dr. MIGUEL GALVEZ Dec 29 2014 12:05PM ELECTRONICALLY SIGNED BY: [facility]: [facility] Dec 29 2014 12:05PM RADRES [id number] ^^^ documented in this encounter Plan of Treatment Not on file documented as of this encounter Visit Diagnoses Not on filedocumented in this encounter Care Teams Hide Examiner Relationship Specialty Start Date End Date Pcp, Estrella PCP - General 12/05/16 documented as of this encounter
--- OUTSIDE RECORDS SUMMARY | 2025-02-10 22:35 | XMS_ITS | Clinical Summary ---
Author Organization [facility] Address [address] [place] [address] Care Team Providers Care Senior Web Developer Name Role Phone Pcp, No Primary Care [...] 2024 Influenza Vaccine (#1) 2024 Care Teams Senior Web Developer Relationship Specialty Start Date End Date Pcp, No PCP - General 12/05/16
--- OUTSIDE RECORDS SUMMARY | 2025-02-10 22:35 | XMS_ITS | Encounter Summary ---
Author Organization [facility] Address [address] [place] [address] Care Team Providers Care Burnisher Name Role Phone Pcp, No Primary Care Provider Unavailabl e Encounter Details Date Type Department Care Team (Late st Contact Info) Description 11/19/2014 Conversion Encounter [facility] Conversion Department [address] [place] [address] Provider, [address] [id number] Social History Tobacco Use Types Packs/Day Years Used Date Smoking Tobacco: Never Assessed Sex and Gender Information Value Date Recorded Sex Assigned at Not on file Gender Identity Not on file Sexual Orientation Not on file documented as of this encounter Plan of Treatment Not on file documented as of this encounter Visit Diagnoses Not on filedocumented in this encounter Care Teams Burnisher Relationship Specialty Start Date End Date Pcp, No PCP - General 12/05/16 documented as of this encounter
--- OUTSIDE RECORDS SUMMARY | 2025-02-10 22:35 | XMS_ITS | Encounter Summary ---
Author Organization [facility] Address [address] [place] [address] Care Team Providers Care Infantry Weapons Officer Name Role Phone Pcp, No Primary Care Provider Unavailabl e Encounter Details Date Type Department Care Team (Late st Contact Info) Description 11/19/2014 Conversion Encounter [facility] Conversion Department [address] [place] [address] Levar Gomes MD [address] [place] [address] Social History Tobacco Use Types Packs/Day Years Used Date Smoking Tobacco: Never Assessed Sex and Gender Information Value Date Recorded Sex Assigned at Not on file Gender Identity Not on file Sexual Orientation Not on file documented as of this encounter Progress Notes * Provider, Historical - 11/19/2014 12:00 AM EST [id number] Report: Radiology ([facility]) Radiology PATIENT [facility]: [facility] NUMBER: [id number] DATE: 11/20/2014 CASE#: [id number] SIGNATURE:NATA PATEL RADIOLOGY REPORT:SPINE LUMBAR 2 OR 3 VIEWS post op spinal fusion 11/20/2014 10:54 AM Comparison: September 20, 2014. Pedicle screws and rods and intravertebral spacer have been placed at L4-L5. The disc space remains normal.. Overall alignment is normal. [facility] Mechanical Meter Tester Date - IMPRESSION:Intact L4-L5 discectomy and fusion. DICTATED BY : Dr. NATA PATEL Nov 20 2014 11:16AM ELECTRONICALLY SIGNED BY: Dr. NATA PATEL Nov 20 2014 11:13AM TRANSCRIBED BY: PSCB Nov 20 2014 11:12AM RADRES [id number] ^^^ documented in this encounter OR Notes * Op Note - Levar Gomes MD - 11/19/2014 12:00 AM EST PATIENT: [facility] NO: [id number] DATE OF : 1990 ACCOUNT NO: [id number] DATE OF PROCEDURE: 11/19/2014 DICTATING PHYSICIAN: SRINIVAS [...] outside hospital. She was seen at the [facility] and given the latest [...] noted complications. LEVAR GOMES M.D. ANNI/ JOB#: [id number] END OF DOCUMENT / CHANGE LOG FOLLOWS Elec. Signed By Bentley Dixon #[id number] for Levar Gomes #[id number] on 11/29/2014 07:16 ET ^^^ documented in this encounter Plan of Treatment Not on file documented as of this encounter Visit Diagnoses Not on filedocumented in this encounter Care Teams Infantry Weapons Officer Relationship Specialty Start Date End Date Pcp, Estrella PCP - General 12/05/16 documented as of this encounter
--- OUTSIDE RECORDS SUMMARY | 2025-02-10 22:35 | XMS_ITS | Encounter Summary ---
Author Organization [employer] [facility] Address [address] [place] [address] Care Team Providers Care Chemist Enzymes Name Role Phone Jennifer Emerson DO Primary Care Provider [phone] Encounter Details Date Type Department Care Team [...] W/o IV Contrast ORDERED BY: DANNY MONACO ([facility]) [id number] Report: Radiology ([facility]) Radiology Consultation Report Exam: CT Lumbar Spine [...] Procedure Name Priority Date/Time Associated Diagnosis Comments [facility] RADIOLOGY REPORT 08/13/2016 9:47 AM EDT documented in this encounter Results * [facility] RADIOLOGY REPORT (08/13/2016 9:47 AM EDT) Anatomical Region Laterality Modality Other Narrative Procedure Note Doctor Dimitry - 08/13/2016 9:47 AM EDT This final report originated from an external system. Edits and Signatures are only valid in the legal medical record. IHIE: CT Lumbar Spine W/o IV Contrast ORDERED BY: DANNY MONACO ([facility]) [id number] Report: Radiology ([facility]) Radiology Consultation Report Exam: CT Lumbar Spine [...] using my uniquesignature access code. Doctor Autosign [id number] Final Result documented in this encounter Visit Diagnoses Not on filedocumented in this encounter Additional Health Concerns Infection Onset Date Last Indicated Resolved Time Coronavirus Disease (COVID-1 9) - Rule out 05/03/2021 05/03/2021 05/03/2021 12:03 PM EDT documented as of this encounter Care Teams Chemist Enzymes Relationship Specialty Start Date End Date Jennifer Emerson DO [address] [address] PCP - General 05/11/19 documented as of this encounter
--- OUTSIDE RECORDS SUMMARY | 2025-02-10 22:35 | XMS_ITS | Referral Summary ---
Author Organization [facility] Address [address] [place] [address] Care Team Providers Care Grease Cup Filler Name Role Phone Pcp, No Primary Care [...] of Treatment Not on file Care Teams Grease Cup Filler Relationship Specialty Start Date End Date Pcp, No PCP - General 12/05/16
--- OUTSIDE RECORDS SUMMARY | 2025-02-10 22:35 | XMS_ITS | Encounter Summary ---
Author Organization [employer] [facility] Address [address] [place] [address] Care Team Providers Care Apple Press Operator Name Role Phone Jennifer Emerson DO Primary Care Provider [phone] Encounter Details Date Type Department Care Team (Late st Contact Info) Description 12/15/2015 Telephone Osteopathic Family Medicine [address] [address], [address] [place], [place] [id number] Social History Tobacco Use Types Packs/Day Years [...] documented as of this encounter Care Teams Apple Press Operator Relationship Specialty Start Date End Date Jennifer Emerson DO [address] [address] PCP - General 05/11/19 documented as of this encounter
--- OUTSIDE RECORDS SUMMARY | 2025-02-10 22:35 | XMS_ITS | Encounter Summary ---
[facility] Address [address] [place] [address] Care Team Providers Care Plant Director Name Role Phone Pcp, No Primary Care Provider Unavailabl e Encounter Details Date Type Department Care Team (Late st Contact Info) Description 09/20/2014 Conversion Encounter [facility] Conversion Department [address] [place] [address] Provider, [address] [id number] Social History Tobacco Use Types Packs/Day Years Used Date Smoking Tobacco: Never Assessed Sex and Gender Information Value Date Recorded Sex Assigned at Not on file Gender Identity Not on file Sexual Orientation Not on file documented as of this encounter Progress Notes * Provider, Historical - 09/20/2014 12:00 AM EST [id number] Report: Radiology ([facility]) Radiology PATIENT [facility]: [facility] NUMBER: [id number] DATE: 09/20/2014 CASE#: [id number] RADIOLOGY REPORT:EXAM: Exam: SPINE LUMBAR W/ BENDING [...] for fracture or subluxation. Transcribed by - [facility] Steam Drier Operator Date - [id number] IMPRESSION:Negative for fracture. No subluxation with flexion or extension. DICTATED BY : Dr. CON SPENCER Sep 20 2014 9:15PM ELECTRONICALLY SIGNED BY: Dr. CARLA LEE Sep 21 2014 12:11AM TRANSCRIBED BY: PSCB Sep 20 2014 9:15PM DAYANA [id number] SIGNATURE:CARLA LEE ^^^ * Provider, Historical - 09/20/2014 12:00 AM EST [id number] Report: Radiology ([facility]) Radiology [facility] NUMBER: [id number] DATE: 09/20/2014 CASE#: [id number] RADIOLOGY REPORT:Exam: MR lumbosacral spine without contrast [...] neural foramina is seen. [facility] Steam Drier Operator Date - [id number] IMPRESSION:1. Post surgical changes at L4-L5 with [...] Provider, Historical - 09/20/2014 12:00 AM EST [id number] Report: Radiology ([facility]) Radiology PATIENT NAME: L[facility] NUMBER: [id number] DATE: 09/20/2014 CASE#: [id number] RADIOLOGY REPORT:Exam: Thoracic spine MR without contrast [...] intrinsic or extrinsic lesions. Transcribed by - [facility] Steam Drier Operator Date - [id number] IMPRESSION:1. Disc bulge at T10-11 causes moderate [...] on filedocumented in this encounter Care Teams Plant Director Relationship Specialty Start Date End Date Pcp, No PCP - General 12/05/16 documented as of this encounter
--- NOTE | 2025-02-10 22:44 | PC.NURSE ---
Pt presents to ED due to lac on (L) index finger with box toe cementer. Last tdap >10 years ago, pressure wrap in place.
--- NOTE | 2025-02-10 23:22 | PC.NURSE ---
MD at bedside applying sutures.
== END 2025-02-10 23:51 | disposition home or self-care (01) ==
PROVIDERS: Emergency Provider Student in an Organized Health Care Education/Training Program
DX: S61.211A Laceration without foreign body of left index finger without damage to nail, initial encounter (principal); Z23 Encounter for immunization; F17.290 Nicotine dependence, other tobacco product, uncomplicated; Z90.710 Acquired absence of both cervix and uterus; W27.8XXA Contact with other nonpowered hand tool, initial encounter
CPT/HCPCS: 12001; 73130; 90471; 90715; 99283; J2003